=== PATIENT | female | born 1980 | race Caucasian/White ===

== ENCOUNTER 2016-09-07 09:34 | Emergency (ER) | payer OTHER ==
[~2016-09-07] VITALS: Ht 170.2 cm; Wt 104.3 kg
[2016-09-07 10:30] LABS: Basophils # (auto) 0.1 uL; Basophils % (auto) 1.5 % (0.0-2.0); CONDITION Y; Eosinophils # (auto) 0.1 uL; Eosinophils % (auto) 1.7 % (0.0-7.0); Hemoglobin 15.6 g/dL (12.2-16.2); Lymphocytes # (auto) 1.6 uL; Mean Corpuscular Hemoglobin 31.7 pg (28.0-32.0); Mean Corpuscular Volume 93.2 fL (80.0-100.0); Mean Platelet Volume 8.1 fL (7.4-10.4); Monocytes # (auto) 0.5 uL; Neutrophils # (auto) 5.1 uL; Neutrophils % (auto) 68.8 % (37.0-80.0); Platelet Count (auto) 276 10^3/uL (140-450); Red Cell Distribution Width 12.8 % (11.6-16.0); White Blood Cell 7.4 10^3/uL (4.4-10.8)
[2016-09-07 10:48] LABS: Albumin 4.2 g/dL (3.4-5.0); Anion Gap 9 (5-15); Aspartate Aminotransferase 136 U/L (15-37); BUN/Creatinine Ratio 10.7; Blood Urea Nitrogen 8 mg/dL (7-18); Calcium 8.7 mg/dL (8.5-10.1); Carbon Dioxide 24 mmol/L (21-32); Chloride 106 mmol/L (98-107); GFR African American 114 mL/min; GFR Non-African American 94 mL/min; Glucose 118 mg/dL (74-106); Potassium 3.8 mmol/L (3.5-5.1); Sodium 139 mmol/L (136-145)
[2016-09-07 10:53] LABS: Alkaline Phosphatase 96 U/L (45-117); Bilirubin, Total 0.4 mg/dL (0.2-1.0); Total Protein 8.3 g/dL (6.4-8.2)
[2016-09-07] MEDS ORDERED: cloNIDine HCL 0.1 MG TAB PO ONE ×2 (13:00→14:45)
[2016-09-07 14:43] VITALS: BP 196/123
== END 2016-09-07 16:19 | disposition home or self-care (01) ==
LOC: ER 09:34
DX: I16.0 Hypertensive urgency (principal); I10 Essential (primary) hypertension; R07.89 Other chest pain; F17.210 Nicotine dependence, cigarettes, uncomplicated; R42 Dizziness and giddiness
CPT/HCPCS: 36415; 71010; 80053; 84484; 85025; 85379; 93005; 94761